=== PATIENT | female | born 1990 | race Caucasian/White ===

== ENCOUNTER 2016-10-13 01:49 | Emergency (ER) | payer BC, OTHER ==
[~2016-10-13] VITALS: Ht 154.9 cm; Wt 48.0 kg
[2016-10-13 01:52] VITALS: Ht 154.9 cm; Wt 48.0 kg
[2016-10-13] MEDS ORDERED: CLIN-73 PO (03:01)
[2016-10-13] MEDS ORDERED: IBUP-1542 PO (03:01)
[2016-10-13] MEDS ORDERED: ULT50 PO (03:01)
[2016-10-13 03:09] VITALS: BP 101/66; PULSE 62; RESP 16; TEMP 98.3
--- NOTE | 2016-10-13 03:15 | ERD ---
ER Documentation Chief Complaint Date/Time DATE: 10/13/16 TIME: 03:09 Chief Complaint RING FINGER LEFT HAND WITH SWELLING AND PAIN STARTED LAST NIGHT HPI 25 year female presents to emergency department for complaints of left fourth finger redness and swelling surrounding the fingernail. Patient is complaining of pain on affected area, throbbing pain, 4/10 scale, is worse upon touching the area. Patient did not take any medications of symptoms. Patient denies any numbness or tingling. Patient denies any discharge coming from the area. Patient denies any fever or chills. ROS All systems reviewed and are negative except as per history of present illness. Medications Home Meds Active Scripts Tramadol HCl (Tramadol HCl) 50 Mg Tablet, 50 MG PO Q6 Y for PAIN, #20 TAB Prov:MYAH CAMEJO NP 10/13/16 Ibuprofen* (Motrin*) 600 Mg Tab, 600 MG PO Q6H Y for PAIN AND OR ELEVATED TEMP, #30 TAB Prov:MYAH CAMEJO NP 10/13/16 Clindamycin Hcl* (Clindamycin Hcl*) 300 Mg Capsule, 300 MG PO TID for 10 Days, CAP Prov:MYAH CAMEJO [employer]ING [employer]GER 10/13/16 Reported Medications [None] No Conflict Check 05/26/13 Allergies Allergies: Uncoded Allergies: NONE (Allergy, 05/26/13) PMhx/Soc Medical and Surgical Hx: pt denies Medical Hx, pt denies Surgical Hx Hx Alcohol Use: Yes Hx Substance Use: Yes (MARIJUANA) Hx Tobacco Use: No Smoking Status: Never smoker FmHx Family History: No coronary disease, No diabetes, No other Physical Exam Vitals Vital Signs Date Time Temp Pulse Resp B/P Pulse Ox O2 Delivery O2 Flow Rate FiO2 10/13/16 01:52 98.3 66 16 101/66 100 Physical Exam GENERAL: The patient is well developed and appropriate for usual state of health, in no apparent distress. CHEST: Clear to auscultation bilaterally. There are no rales, wheezes or rhonchi. HEART: Regular rate and rhythm. No murmurs, clicks, rubs or gallops. No S3 or S4. ABDOMEN: Soft, nontender and nondistended. Good bowel sounds. No rebound or guarding. No gross peritonitis. No gross organomegaly or masses. No Peacock sign or McBurney point tenderness. BACK: No midline or flank tenderness. EXTREMITIES: Equal pulses bilaterally. There is no peripheral clubbing, cyanosis or edema. No focal swelling or erythema. Full range of motion. Grossly neurovascularly intact. NEURO: Alert and oriented. Cranial nerves 2-12 intact. Motor strength in all 4 extremities with 5/5 strength. Sensation grossly intact. Normal speech and gait. SKIN: The third redness and swelling surrounding the left fourth fingernail. There is no apparent rash or petechia. The skin is warm and dry. HEMATOLOGIC AND LYMPHATIC: There is no evidence of excessive bruising or lymphedema. No gross cervical, axillary, or inguinal lymphadenopathy. Procedures/MDM Medical decision making: Patient symptoms was female consistent with paronychia. No symptoms of any abscess at this time, incision and drainage that indicated at this time. No symptoms of any neurovascular compromise. No symptoms of sepsis at this time. Patient appears well and is hemodynamically stable. Patient was given for clindamycin, ibuprofen for mild to moderate pain, tramadol for severe pain, advised to elevate affected area, she was advised to return to emergency department for any worsening symptoms. Patient was advised to follow with primary care doctor in 2 days for reevaluation symptoms. Departure Diagnosis: Primary Impression: Paronychia Laterality: left Qualified Code: L03.012 - Paronychia, left Condition: Stable Patient Instructions: MYAH Lilly NP Oct 13, 2016 03:15
== END 2016-10-13 03:09 | disposition home or self-care (01) ==
LOC: FTE 01:49
DX: L03.012 Cellulitis of left finger (principal)
CPT/HCPCS: 99284